=== PATIENT | male | born 1975 | race Caucasian/White ===

== ENCOUNTER → 2016-07-24 | Outpatient (CLI) | payer BC ==
[~2016-07-24] MED LIST: COZAAR100 MG PO
[2016-07-24 11:46] VITALS: BP 168/105
== END ==
LOC: AMSURD 11:29
DX: K21.9 Gastro-esophageal reflux disease without esophagitis (principal)

== ENCOUNTER → 2019-05-18 | Outpatient (CLI) | payer BC ==
[2016-07-24 11:46] VITALS: BP 168/105
[2019-05-18 08:20] LABS: EOS # 0.2 (0.04-0.40); EOS % 1.9 % (0.0-4.0); HEMATOCRIT 45.3 % (42.0-52.0); HEMOGLOBIN 14.9 g/dL (13.5-18.0); LYMPH# 2.5 (1.50-4.00); MEAN CELL VOLUME 84 fl (78-100); MEAN CORPUSCULAR HEMOGLOBIN 28 pg (27-31); MEAN CORPUSCULAR HGB CONC 33 g/dL (33-37); MEAN PLATELET VOLUME 9.2 fl (7.4-10.4); MONO # 0.7 (0.20-0.80); PLATELET COUNT 258 K/mm3 (130-400); RED BLOOD COUNT 5.42 M/mm3 (4.20-5.60); RED CELL DISTRIBUTION WIDTH 13.9 % (11.5-14.5); WHITE BLOOD COUNT 8.4 K/mm3 (4.8-10.8)
[2019-05-18 08:41] LABS: ALBUMIN 4.2 g/dL (3.5-5.0); POTASSIUM 4.1 mmol/L (3.5-5.1)
[2019-05-18 08:42] LABS: CALCIUM 10.2 mg/dL (8.3-10.5)
[2019-05-18 08:44] LABS: TOTAL PROTEIN 7.5 g/dL (6.4-8.3)
[2019-05-18 08:45] LABS: TOTAL BILIRUBIN 0.7 mg/dL (0.2-1.2)
[2019-05-18 11:22] LABS: ERYTHROCYTE SEDIMENTATION RATE 5 mm/hr (0-15)
== END ==
LOC: LAB 08:04
PROVIDERS: Internal Medicine
DX: Z00.00 Encounter for general adult medical examination without abnormal findings (principal); Z12.5 Encounter for screening for malignant neoplasm of prostate

== ENCOUNTER → 2019-11-04 | Outpatient (CLI) | payer BC ==
[2016-07-24 11:46] VITALS: BP 168/105
== END ==
LOC: LAB 08:22
DX: M79.10 Myalgia, unspecified site (principal); R53.83 Other fatigue; R19.7 Diarrhea, unspecified; R50.9 Fever, unspecified

== ENCOUNTER → 2019-12-05 | Outpatient (CLI) | payer BC ==
[2016-07-24 11:46] VITALS: BP 168/105
[2019-12-05 14:46] LABS: EOS # 0.2 (0.04-0.40); EOS % 1.5 % (0.0-4.0); HEMATOCRIT 43.3 % (42.0-52.0); HEMOGLOBIN 14.4 g/dL (13.5-18.0); LYMPH# 3.5 (1.50-4.00); MEAN CELL VOLUME 82 fl (78-100); MEAN CORPUSCULAR HEMOGLOBIN 27 pg (27-31); MEAN CORPUSCULAR HGB CONC 33 g/dL (33-37); MEAN PLATELET VOLUME 9.2 fl (7.4-10.4); MONO # 0.9 (0.20-0.80); NEU # 7.6 (1.40-6.50); PLATELET COUNT 306 K/mm3 (130-400); RED BLOOD COUNT 5.27 M/mm3 (4.20-5.60); RED CELL DISTRIBUTION WIDTH 14.3 % (11.5-14.5); WHITE BLOOD COUNT 12.3 K/mm3 (4.8-10.8)
[2019-12-05 15:43] LABS: ALBUMIN 4.6 g/dL (3.5-5.0); POTASSIUM 3.8 mmol/L (3.5-5.1)
[2019-12-05 15:44] LABS: CALCIUM 9.7 mg/dL (8.3-10.5)
[2019-12-05 15:45] LABS: TOTAL PROTEIN 8.2 g/dL (6.4-8.3)
[2019-12-05 16:38] LABS: ERYTHROCYTE SEDIMENTATION RATE 55 mm/hr (0-15)
[2019-12-05 17:22] LABS: URINE COLOR LT YELLOW
[2019-12-05 17:23] LABS: URINE APPEARANCE CLEAR
[2019-12-05 17:24] LABS: URINE BILIRUBIN NEGATIVE (NEGATIVE); URINE BLOOD NEGATIVE (NEGATIVE); URINE GLUCOSE NEGATIVE (NEGATIVE); URINE KETONE NEGATIVE (NEGATIVE); URINE LEUKOCYTE ESTERASE NEGATIVE (NEGATIVE); URINE NITRATE NEGATIVE (NEGATIVE); URINE PROTEIN(semi-quant) NEGATIVE (NEGATIVE); URINE UROBILINOGEN NORMAL (NORMAL)
[2019-12-05 17:25] LABS: URINE WBC 0-1 /hpf (0-3)
== END ==
LOC: RAD 14:36 → LAB 14:36
PROVIDERS: Internal Medicine
DX: I10 Essential (primary) hypertension (principal); R10.84 Generalized abdominal pain; R19.7 Diarrhea, unspecified

== ENCOUNTER → 2019-12-07 | Outpatient (CLI) | payer BC ==
[2016-07-24 11:46] VITALS: BP 168/105
== END ==
LOC: RAD 14:39
DX: K57.32 Diverticulitis of large intestine without perforation or abscess without bleeding (principal); I10 Essential (primary) hypertension
CPT/HCPCS: Q9967

== ENCOUNTER → 2020-04-04 | Outpatient (CLI) | payer BC ==
[2016-07-24 11:46] VITALS: BP 168/105
[2020-04-04 16:20] LABS: EOS # 0.1 (0.04-0.40); EOS % 1.5 % (0.0-4.0); LYMPH# 2.1 (1.50-4.00); MEAN CELL VOLUME 83 fl (78-100); MEAN CORPUSCULAR HEMOGLOBIN 27 pg (27-31); MEAN CORPUSCULAR HGB CONC 33 g/dL (33-37); MEAN PLATELET VOLUME 9.7 fl (7.4-10.4); MONO # 0.5 (0.20-0.80); NEU # 4.6 (1.40-6.50); PLATELET COUNT 287 K/mm3 (130-400); RED BLOOD COUNT 5.52 M/mm3 (4.20-5.60); WHITE BLOOD COUNT 7.3 K/mm3 (4.8-10.8)
[2020-04-04 16:25] LABS: ALBUMIN 4.8 g/dL (3.5-5.0); POTASSIUM 4.2 mmol/L (3.5-5.1)
[2020-04-04 16:26] LABS: CALCIUM 9.7 mg/dL (8.3-10.5)
[2020-04-04 16:28] LABS: TOTAL PROTEIN 7.9 g/dL (6.4-8.3)
[2020-04-04 16:29] LABS: TOTAL BILIRUBIN 0.9 mg/dL (0.2-1.2)
[2020-04-04 17:29] LABS: ERYTHROCYTE SEDIMENTATION RATE 16 mm/hr (0-15)
== END ==
LOC: LAB 15:19
PROVIDERS: Internal Medicine
DX: Z00.00 Encounter for general adult medical examination without abnormal findings (principal); Z12.5 Encounter for screening for malignant neoplasm of prostate